=== PATIENT | female | born 1970 | race Caucasian/White ===

== ENCOUNTER → 2023-10-19 14:41 | Outpatient (REF) | payer BC, SELFPAY | LOC: WDC 14:41 | PROVIDERS: ATTENDING PHYSICIAN Family Medicine | DX: R92.8 Other abnormal and inconclusive findings on diagnostic imaging of breast (principal) | CPT/HCPCS: 77061; 77065 ==

== ENCOUNTER → 2024-05-10 19:07 | Outpatient (REF) | payer BC, SELFPAY | LOC: WDC 19:07 | PROVIDERS: ATTENDING PHYSICIAN Family Medicine | DX: Z12.31 Encounter for screening mammogram for malignant neoplasm of breast (principal) | CPT/HCPCS: 77063; 77067 ==